=== PATIENT | male | born 1960 | race Caucasian/White ===

== ENCOUNTER 2024-09-19 14:19 | Inpatient (IN) ==
--- NOTE | 2024-09-19 14:31 | Emergency Department Note ---
Impression & Plan Encephalopathy acute, AC separation, TARA (acute kidney injury), Lung nodule, Benzodiazepine overdose, Rhabdomyolysis ED Provider Note NAME: KIMBERLY HYLTON AGE: 64 SEX: M : 1960 ARRIVES VIA: Ambulance INFORMANT: Patient, EMS, family ED PROVIDER(S): Magen Go DO CHIEF COMPLAINT: possible overdose HPI: This is a 64-year-old male with the PMHx of hypertension, lupus on hydroxychloroquine, lung nodules, tobacco use disorder, and possibly carcinoid cancer regarding this. presenting to [facility] for further evaluation of possible overdose now with AMS. Patient is accompanied by EMS who provide additional history. Patient arrives with police. The patient was unresponsive. EMS brought the patient in. Patient is supposed to return to custodial tomorrow. Made suicidal statements about a note. Patient unresponsive. Patient was given 8 mg of Narcan prior to arrival. Patient is not apneic. He is responsive. Patient does not have forthcoming statements about his history or review of systems today. He does state that he took no medications today. Medications at the bedside show Zolpidem but filled on 08/24 with 30 tablets, 1 tablet left. They deny fever or chills. No cough or congestion. Denies chest pain or palpitations. No shortness of breath. They deny abdominal pain, nausea and vomiting. No urinary complaints. No recent changes in bowel movements. Patient denies recent changes in medications or OTC supplements. Patient offers no other complaints, today. ADDITIONAL HISTORY OBTAINED: Per HPI Chronic Medical/Social Conditions Affecting Care: Per HPI PAST MEDICAL HISTORY: See Below PAST SURGICAL HISTORY: See Below FAMILY HISTORY: See Below SOCIAL HISTORY: See Below HOME MEDICATIONS: See Below ALLERGIES: See Below VITALS: See Below PHYSICAL EXAMINATION: GENERAL: Sitting up in bed, alert, well appearing, well nourished, no distress, non-toxic, diaphoretic EYE EXAM: normal conjunctiva. PERRL and EOM's grossly intact. OROPHARYNX: no exudate, no erythema, lips, buccal mucosa, and tongue normal and mucous membranes are dry NECK: supple, no nuchal rigidity, no adenopathy, midline TTP LUNGS: Clear to auscultation. Normal chest wall mechanics HEART: no murmurs, tachycardic rate, regular rhythm ABDOMEN: abdomen soft, non-tender, normo-active bowel sounds, no masses, no rebound or guarding. BACK: Back is symmetrical on inspection and there is no deformity, no midline tenderness, no CVA tenderness. SKIN: no rashes and no bruising UPPER EXTREMITIES: upper extremities are grossly normal. L AC separation LOWER EXTREMITIES: No pitting edema. NEURO EXAM: Normal sensorium, cranial nerves II-XII grossly intact, normal speech, no gross weakness of arms, no gross weakness of legs. No clonus. Normoreflexic. MEDICAL DECISION MAKING: Differential diagnoses includes but not limited to hypoglycemia, electrolyte derangements, dehydration, shock, CVA, ICH, hydrocephalus, NPH, UTI, pneumonia, viral URI, postictal period, ACS, dysrhythmia, metabolic encephalopathy, multifactorial encephalopathy, hepatic encephalopathy, hypercapnia, hypoxia, polypharmacy, substance use In summary, this is a 64 year old male who presented with AMS. Differential as above. Nursing notes and pertinent past medical records reviewed. Vital signs reviewed and the patient is tachycardic but otherwise afebrile and hemodynamically stable. History and presentation revealed potential overdose today. Did receive 8 mg of Narcan with EMS. Appears this was for altered mental status as the patient was not hypoxic or apneic. Patient may have taken Ambien or lorazepam. Also has hydroxychloroquine available to him. Patient is not reliable for history or physical examination. Unable to provide significant history or review of systems. Physical examination revealed as above. As a result of my initial evaluation, given unclear etiology of the patient's altered mental status As well as possible AC separation, will obtain whole- body CT scan for traumatic injuries. Plan for infectious and metabolic workup. Plan for tox screen. No evidence of serotonin syndrome. I do not find evidence of anticholinergic toxicity but still possible with tachycardia. Patient is diaphoretic making this unlikely. Could be Sympathomimetic. Could be infectious or traumatic. Plan for further workup. Will provide IV fluid resuscitation while obtaining labs and imaging. Diagnostics interpreted by me include EKG and cardiac monitoring as listed below: -Cardiac Monitoring: An order was placed for continuous cardiac monitoring. The monitor shows a rate of 90-130 with regular rhythm. -ECG: initial EKG shows a poor baseline but appears to be normal sinus rhythm in the [address] segment changes to suggest STEMI. Intervals are within normal limits otherwise. QTc is 420 ms. URS duration is 82 ms Patient completed laboratory studies and imaging. The patient was managed with CCRM and bladder scan on arrival. Bladder scan showed minimal urine, 160s in the bladder. Do not suspect significant urinary retention. No fever. Minimal tachycardia. No clonus, rigidity and normal reflexes. Serotonin syndrome less likely. POC labs show possible TARA but unclear baseline. Will bolus with IVFR. There is concerns for possible shoulder dislocation from nursing staff and radiology. I reviewed imaging at the bedside. He does appear to have an AC separation on the left. Shoulder appears mildly subluxed. He has no significant pain. I reviewed prior imaging including CT chest and plain films of the left shoulder dating back the last few years. Does have a chronic AC separation. This appears similar to prior. I do not believe the shoulder is dislocated. Given that the patient is a poor historian with possible trauma, we will still obtain whole-body CT scans and place c-collar. Further history obtained from family. Had a 60 tablet 1 mg lorazepam prescription filled 10 days ago. No tablets left in the bottle. They believe he likely overdosed on lorazepam. Patient is you have any recent currently awake. He is a GCS of 14. No apnea. Mild confusion. Will hold off on reversal with flumazenil at this time.CKD versus TARA noted on CMP. No significant electrolyte derangements. CK is mildly elevated at 722. Plan for continued IV fluid resuscitation. Patient's urinalysis shows some blood and ketones. There are hyaline casts. Suspect likely dehydration. IV fluid resuscitation is ongoing. No evidence of coingestions. Negative ethanol. No elevation in salicylate level or APAP. Repeat EKG shows sinus tachycardia at a rate of 111. No significant ST segment changes to suggest STEMI. There are ST segment depressions in the lateral leads. Intervals otherwise within normal limits. QRS is 92 ms. QTc is 462 ms. Chest x-ray independently interpreted by me reveals no focal consolidation to suggest pneumonia. No pneumothorax. No obvious displaced rib fracture. Patient does have a lung nodule noted. Will place in diagnoses for appropriate follow-up. Whole-body CT scans were negative for traumatic injuries. Again I do believe that the patient's AC separation is likely chronic. 1700: Still intermittently responsive. Now febrile at 38.6C. Will given further IVFR and Tylenol. Ultimately, the decision was made to admit the patient for Acute encephalopathy with concerns for possible polysubstance overdose. Does have acute rhabdomyolysis and an TARA. Did spike a fever while in the emergency department but felt more likely related to his overdose as the patient has had no other evidence of infection and extensive workup with CT scan, urinalysis and viral swab. It was recommended to admit this patient at 1708. I discussed the case with the hospitalist service via [employer] and they are agreeable to admit the patient to their services. Based on the above, including the patient's age, coexisting illnesses, labs, imaging, and exam findings the decision to treat as an inpatient. I discussed the patient with the hospitalist team who recommended admission to their services. They received the medications, treatments, interventions indicated above and their condition remained guarded. I discussed my findings with the patient and their family and they understand and agree with the treatment plan. All patient / family questions were answered to their satisfaction. Consults/Care Managements Discussions: Per [facility] ER treatment provided: See above Procedures:none Critical Care: None The chart was completed utilizing [employer] Speech voice recognition software. Grammatical errors, random word insertions, pronoun errors, and incomplete sentences are an occasional consequence of this system due to software limitations, ambient noise, and hardware issues. Any formal questions or concerns about the content, text, or information contained within the body of this dictation should be directly addressed to the physician for clarification. Past Med/Surg History Problem List Lung nodule (Acute) TARA (acute kidney injury) (Acute) AC separation (Acute) Encephalopathy acute (Acute) Other nonspecific abnormal finding of lung field Lung nodules Dyspnea on exertion Tobacco abuse counseling Abnormal CT scan, chest Headache (Acute) Nasal congestion (Acute) Sinus pain (Acute) Medical History History of hypertension History of lupus Surgical History History of total left hip replacement History of hernia repair Social History Smoking Status: Unknown if ever smoked Tobacco Type: Cigarettes Age Started Using Tobacco: 16; packs per day: 0.5; Hx Alcohol Use: No Hx Substance Use: No Feels Safe at Home: Yes Allergies Allergies Allergy/AdvReac Type Severity Reaction Status Date / Time linezolid Allergy Unknown POSSIBLE Verified 08/01/21 14:51 ALLERGY Penicillins Allergy Unknown Verified 08/01/21 14:51 vancomycin AdvReac Intermediate POSSIBLE Verified 08/01/21 14:51 [employer] Home Meds Home Medications Medication Instructions Recorded Confirmed hydroxychloroquine 200 mg tablet 300 mg PO HS 09/19/24 09/19/24 irbesartan 300 mg tablet 300 mg PO DAILY 09/19/24 09/19/24 lorazepam 1 mg tablet 1 mg PO BID PRN Anxiety 09/19/24 09/19/24 zolpidem 10 mg tablet (Ambien) 10 mg PO HS PRN Sleep 09/19/24 09/19/24 Results & Data (ED) Vital Signs Vital Signs - 24 hr 09/19/24 14:23 09/19/24 14:23 09/19/24 14:30 Temperature 37.6 C H Temperature Source Oral Pulse Rate 113 H 123 H Pulse Rate [Right Finger] Respiratory Rate 24 Respiratory Effort / Characteristics Non-Labored Spontaneous Respiratory Depth Normal Respiratory Pattern Regular Blood Pressure 127/81 Blood Pressure [Left Arm] Blood Pressure Mean 96 Blood Pressure Mean [Left Arm] Pulse Oximetry 98 98 Oxygen Delivery Method Room Air Room Air Oxygen Flow Rate Sepsis Recent Fever Within 48 Hours No Sepsis New/Unexplained Change in Mental Status Yes Sepsis Action Taken by Nursing Physician Notified Oxygen Flow Rate - Titration Pulse Oximetry Post Tiitration 09/19/24 14:31 09/19/24 14:31 09/19/24 15:12 Temperature Temperature Source Pulse Rate Pulse Rate [Right Finger] 100 H Respiratory Rate 12 Respiratory Effort / Characteristics Non-Labored Spontaneous Respiratory Depth Normal Respiratory Pattern Regular Blood Pressure Blood Pressure [Left Arm] 129/75 Blood Pressure Mean Blood Pressure Mean [Left Arm] 93 Pulse Oximetry 95 95 95 Oxygen Delivery Method Room Air Room Air Room Air Oxygen Flow Rate Sepsis Recent Fever Within 48 Hours Sepsis New/Unexplained Change in Mental Status Sepsis Action Taken by Nursing Oxygen Flow Rate - Titration Pulse Oximetry Post Tiitration 09/19/24 15:36 09/19/24 15:55 09/19/24 16:15 Temperature Temperature Source Pulse Rate Pulse Rate [Right Finger] 104 H 106 H 104 H Respiratory Rate 18 14 14 Respiratory Effort / Characteristics Non-Labored Spontaneous Non-Labored Spontaneous Non-Labored Spontaneous Respiratory Depth Normal Normal Normal Respiratory Pattern Regular Blood Pressure Blood Pressure [Left Arm] 124/71 111/68 110/67 Blood Pressure Mean Blood Pressure Mean [Left Arm] 88 82 81 Pulse Oximetry 94 96 92 Oxygen Delivery Method Room Air Room Air Room Air Oxygen Flow Rate Sepsis Recent Fever Within 48 Hours Sepsis New/Unexplained Change in Mental Status Sepsis Action Taken by Nursing Oxygen Flow Rate - Titration Pulse Oximetry Post Tiitration 09/19/24 16:30 09/19/24 16:48 09/19/24 17:05 Temperature 38.8 C H Temperature Source Oral Pulse Rate Pulse Rate [Right Finger] 102 H 107 H Respiratory Rate 14 18 Respiratory Effort / Characteristics Non-Labored Spontaneous Non-Labored Spontaneous Respiratory Depth Normal Normal Respiratory Pattern Blood Pressure Blood Pressure [Left Arm] 107/65 113/68 Blood Pressure Mean Blood Pressure Mean [Left Arm] 79 83 Pulse Oximetry 97 89 L 96 Oxygen Delivery Method Room Air Room Air Nasal Cannula Oxygen Flow Rate 2 Sepsis Recent Fever Within 48 Hours Sepsis New/Unexplained Change in Mental Status Sepsis Action Taken by Nursing Oxygen Flow Rate - Titration 2 Pulse Oximetry Post Tiitration 93 09/19/24 17:30 09/19/24 17:45 Temperature Temperature Source Pulse Rate Pulse Rate [Right Finger] 95 H 100 H Respiratory Rate 18 12 Respiratory Effort / Characteristics Non-Labored Spontaneous Respiratory Depth Normal Normal Respiratory Pattern Regular Blood Pressure Blood Pressure [Left Arm] 117/70 120/71 Blood Pressure Mean Blood Pressure Mean [Left Arm] 85 87 Pulse Oximetry 97 96 Oxygen Delivery Method Nasal Cannula Nasal Cannula Oxygen Flow Rate 2 2 Sepsis Recent Fever Within 48 Hours Sepsis New/Unexplained Change in Mental Status Sepsis Action Taken by Nursing Oxygen Flow Rate - Titration Pulse Oximetry Post Tiitration Laboratory Data 09/19/24 14:26 09/19/24 14:26 Lab Results 09/19/24 09/19/24 09/19/24 Range/Units 14:26 14:34 14:38 WBC 6.49 (4.8-10.8) K/ul RBC 4.91 (4.70-6.10) M/uL Hgb 14.8 (14.0-18.0) g/dl POC Hgb 16.0 (14.0-18.0) g/dl Hct 45.0 (42.0-52.0) % POC Hct 47 (42-52) % MCV 91.6 (80.0-100.0) fL MCH 30.1 (25.0-34.0) pg MCHC 32.9 (32.0-36.0) g/dL RDW Std Deviation 46.2 (36.4-46.3) fL RDW Coeff of Jamie 13.7 (11.5-14.5) % Plt Count 205 (130-400) K/uL MPV 10.9 (9.4-12.4) fL Immature Gran % (Auto) 0.2 % Neut % (Auto) 62.0 % Lymph % (Auto) 26.5 % [place] % (Auto) 10.5 % Eos % (Auto) 0.3 % Baso % (Auto) 0.5 % Neut # (Auto) 4.03 (1.40-6.50) K/uL Lymph # (Auto) 1.72 (1.20-3.40) K/uL [place] # (Auto) 0.68 H (0.11-0.59) K/uL Eos # (Auto) 0.02 (0.00-0.50) K/uL Baso # (Auto) 0.03 (0.00-0.20) K/uL Immature Gran # (Auto) 0.01 (0.01-0.20) K/uL PT 11.2 (9.0-12.0) Seconds INR 1.0 (0.9-1.1) APTT 26 (21-31) Seconds PTT Ratio 1.0 POC Sodium 143 (135-144) mmol/L Sodium 141 (136-145) mmol/L POC Potassium 4.7 (3.3-5.0) mmol/L Potassium 4.5 (3.5-5.1) mmol/L POC Chloride 107 (101-112) mmol/L Chloride 107 (98-107) mmol/L Carbon Dioxide 26 (21-32) mmol/L POC Total CO2 25 (24-31) mmol/L Anion Gap 8 (3-11) POC Anion Gap 16.0 (16-25) mmol/L POC BUN 31 H (7-18) mg/dl BUN 29 H (6-23) mg/dl Creatinine 2.31 H (0.6-1.4) mg/dl POC Creatinine 2.3 H (0.6-1.3) mg/dl Est Cr Clr Drug Dosing 32.7 ml/min eGFR 30.97 BUN/Creatinine Ratio 12.6 (10-20) Glucose 110 H (70-99(Fasting)) mg/dl POC Glucose (other) 108 H (70-99) mg/dl Calcium 9.5 (8.6-10.3) mg/dl POC Ioniz Calcium Hattie 1.19 (1.12-1.32) mmol/l Magnesium 2.3 (1.7-2.4) mg/dl Total Bilirubin 0.4 (0.2-1.0) mg/dl AST 20 (13-39) U/L ALT 13 (7-52) U/L Alkaline Phosphatase 88 (34-104) U/L Total Creatine Kinase 722 H (30-223) U/L Troponin I High Sens 8.0 (0-20) pg/ml C-Reactive Protein < 0.50 (0-0.5) mg/dl Total Protein 8.1 (6.0-8.3) gm/dl Albumin 4.3 (3.4-5.0) gm/dl Globulin 3.8 (2.5-4.0) gm/dl Albumin/Globulin Ratio 1.1 (0.9-2) Lipase 34 (11-82) U/L Urine Color Urine Appearance (Clear) Urine pH (4.5-7.5) Ur Specific [place] (1.000-1.030) Urine Protein (Negative) Urine Glucose (UA) (Negative) Urine Ketones (Negative) Urine Blood (Negative) Urine Nitrite (Negative) Urine Bilirubin (Negative) Urine Urobilinogen (Negative) Ur Leukocyte Esterase (Negative) Urine WBC (Auto) (0-5) /hpf Urine RBC (Auto) (0-2) /hpf U Hyaline Cast (Auto) (0-2) /lpf U Epithel Cells (Auto) (0-2) /hpf Urine Bacteria (Auto) (None Seen) Hyaline Casts (None Presnt) /lpf Urine Comment Salicylates < 3.0 L (3.0-30) mg/dl Urine Opiates Screen (Neg) Ur Methadone, Qual (Neg) Urine Fentanyl Screen (Neg) Acetaminophen < 3 L (10-30) ug/ml Urine Barbiturates (Neg) Ur Phencyclidine (PCP) (Neg) U Amphetamin/Meth Scrn (Neg) MDMA (Ecstasy) Screen (Neg) U Benzodiazepines Scrn (Neg) Ur Cocaine Metabolite (Neg) U Marijuana (THC) Screen (Neg) Ethyl Alcohol mg/dL < 10.0 (<10.0) mg/dl Adenovirus (PCR) Not Detected (NotDetected) B. pertussis DNA (PCR) Not Detected (NotDetected) B.parapertussis DNA PCR Not Detected (NotDetected) C. pneumoniae DNA (PCR) Not Detected (NotDetected) Coronavirus OC43 (PCR) Not Detected (NotDetected) Coronavirus HKU1 (PCR) Not Detected (NotDetected) Coronavirus 229E (PCR) Not Detected (NotDetected) SARS-CoV-2 (PCR) Not Detected (NotDetected) Coronavirus NL63 (PCR) Not Detected (NotDetected) Human Metapneumovir PCR Not Detected (NotDetected) Influenza Type A (PCR) Not Detected (NotDetected) Influenza Type B (PCR) Not Detected (NotDetected) M. pneumoniae (PCR) Not Detected (NotDetected) Parainfluenza 1 (PCR) Not Detected (NotDetected) Parainfluenza 2 (PCR) Not Detected (NotDetected) Parainfluenza 3 (PCR) Not Detected (NotDetected) Parainfluenza 4 (PCR) Not Detected (NotDetected) RSV (PCR) Not Detected (NotDetected) Entero/Rhino (PCR) Not Detected (NotDetected) 09/19/24 Range/Units 14:47 WBC (4.8-10.8) K/ul RBC (4.70-6.10) M/uL Hgb (14.0-18.0) g/dl POC Hgb (14.0-18.0) g/dl Hct (42.0-52.0) % POC Hct (42-52) % MCV (80.0-100.0) fL MCH (25.0-34.0) pg MCHC (32.0-36.0) g/dL RDW Std Deviation (36.4-46.3) fL RDW Coeff of Jamie (11.5-14.5) % Plt Count (130-400) K/uL MPV (9.4-12.4) fL Immature Gran % (Auto) % Neut % (Auto) % Lymph % (Auto) % [place] % (Auto) % Eos % (Auto) % Baso % (Auto) % Neut # (Auto) (1.40-6.50) K/uL Lymph # (Auto) (1.20-3.40) K/uL [place] # (Auto) (0.11-0.59) K/uL Eos # (Auto) (0.00-0.50) K/uL Baso # (Auto) (0.00-0.20) K/uL Immature Gran # (Auto) (0.01-0.20) K/uL PT (9.0-12.0) Seconds INR (0.9-1.1) APTT (21-31) Seconds PTT Ratio POC Sodium (135-144) mmol/L Sodium (136-145) mmol/L POC Potassium (3.3-5.0) mmol/L Potassium (3.5-5.1) mmol/L POC Chloride (101-112) mmol/L Chloride (98-107) mmol/L Carbon Dioxide (21-32) mmol/L POC Total CO2 (24-31) mmol/L Anion Gap (3-11) POC Anion Gap (16-25) mmol/L POC BUN (7-18) mg/dl BUN (6-23) mg/dl Creatinine (0.6-1.4) mg/dl POC Creatinine (0.6-1.3) mg/dl Est Cr Clr Drug Dosing ml/min eGFR BUN/Creatinine Ratio (10-20) Glucose (70-99(Fasting)) mg/dl POC Glucose (other) (70-99) mg/dl Calcium (8.6-10.3) mg/dl POC Ioniz Calcium Hattie (1.12-1.32) mmol/l Magnesium (1.7-2.4) mg/dl Total Bilirubin (0.2-1.0) mg/dl AST (13-39) U/L ALT (7-52) U/L Alkaline Phosphatase (34-104) U/L Total Creatine Kinase (30-223) U/L Troponin I High Sens (0-20) pg/ml C-Reactive Protein (0-0.5) mg/dl Total Protein (6.0-8.3) gm/dl Albumin (3.4-5.0) gm/dl Globulin (2.5-4.0) gm/dl Albumin/Globulin Ratio (0.9-2) Lipase (11-82) U/L Urine Color Dark Yellow Urine Appearance Clear (Clear) Urine pH 5.5 (4.5-7.5) Ur Specific [place] 1.025 (1.000-1.030) Urine Protein 2+ H (Negative) Urine Glucose (UA) Negative (Negative) Urine Ketones Trace H (Negative) Urine Blood 2+ H (Negative) Urine Nitrite Negative (Negative) Urine Bilirubin Negative (Negative) Urine Urobilinogen Negative (Negative) Ur Leukocyte Esterase Negative (Negative) Urine WBC (Auto) 0-5 (0-5) /hpf Urine RBC (Auto) >20 H (0-2) /hpf U Hyaline Cast (Auto) 11-20 H (0-2) /lpf U Epithel Cells (Auto) 0-2 (0-2) /hpf Urine Bacteria (Auto) None Seen (None Seen) Hyaline Casts Present A (None Presnt) /lpf Urine Comment Salicylates (3.0-30) mg/dl Urine Opiates Screen Pos H (Neg) Ur Methadone, Qual Neg (Neg) Urine Fentanyl Screen Neg (Neg) Acetaminophen (10-30) ug/ml Urine Barbiturates Neg (Neg) Ur Phencyclidine (PCP) Neg (Neg) U Amphetamin/Meth Scrn Neg (Neg) MDMA (Ecstasy) Screen Neg (Neg) U Benzodiazepines Scrn Neg (Neg) Ur Cocaine Metabolite Neg (Neg) U Marijuana (THC) Screen Neg (Neg) Ethyl Alcohol mg/dL (<10.0) mg/dl Adenovirus (PCR) (NotDetected) B. pertussis DNA (PCR) (NotDetected) B.parapertussis DNA PCR (NotDetected) C. pneumoniae DNA (PCR) (NotDetected) Coronavirus OC43 (PCR) (NotDetected) Coronavirus HKU1 (PCR) (NotDetected) Coronavirus 229E (PCR) (NotDetected) SARS-CoV-2 (PCR) (NotDetected) Coronavirus NL63 (PCR) (NotDetected) Human Metapneumovir PCR (NotDetected) Influenza Type A (PCR) (NotDetected) Influenza Type B (PCR) (NotDetected) M. pneumoniae (PCR) (NotDetected) Parainfluenza 1 (PCR) (NotDetected) Parainfluenza 2 (PCR) (NotDetected) Parainfluenza 3 (PCR) (NotDetected) Parainfluenza 4 (PCR) (NotDetected) RSV (PCR) (NotDetected) Entero/Rhino (PCR) (NotDetected) Administered Medications Parenteral Electrolytes (Plasma-Lyte A Ph 7.4) 1,000 mls @ 999 mls/hr IV .Q1H1M ONE Stop: 09/19/24 18:06 Last Admin: 09/19/24 17:13 Dose: 999 mls/hr Documented By: JAMA Discontinued Medications Fentanyl Citrate (Fentanyl Citrate Pf 100 Mcg/2 Ml Vial) 50 mcg IV NOW ONE Stop: 09/19/24 14:59 Last Admin: 09/19/24 16:40 Dose: Not Given Documented By: NRDarren Parenteral Electrolytes (Plasma-Lyte A Ph 7.4) 1,000 mls @ 999 mls/hr IV .Q1H1M ONE Stop: 09/19/24 15:30 Last Infusion: 09/19/24 15:45 Dose: Infused Documented By: Admin: 09/19/24 14:50 Dose: 999 mls/hr Documented By: WILFREDO Acetaminophen (Ofirmev) 1,000 mg in 100 mls @ 400 mls/hr IV NOW STA Stop: 09/19/24 17:21 Last Admin: 09/19/24 17:15 Dose: 400 mls/hr Documented By: JAMA Imaging Data Radiologist's Impression: Chest X-Ray 09/19/24 14:31 Chest radiograph, one view History: AMS Comparison: None Findings: Single AP view of the chest performed. No focal consolidation or pleural effusion. A focal nodule at the medial right lower lung is seen. No pneumothorax. The cardiomediastinal silhouette is within normal limits. Normal pulmonary vascularity. No evidence for lymphadenopathy. No visualized bony or soft tissue abnormality. Impression: Focal nodule at the medial right lower lung. No other acute findings. Electronically signed by Kai Cosme 09-19-2024 3:[address] 09/19/24 14:31 CT head without contrast History: AMS Comparison: None Technique: Using multidetector thin collimation helical acquisition technique, axial, coronal and sagittal CT images from the skull base to the vertex were obtained without intravenous contrast. Dose reduction techniques were achieved by using automatic exposure control and/or adjustment of mA and/or kV according to patient size and/or use of iterative reconstruction technique. Findings: No intracranial hemorrhage, mass-effect, or midline shift. The ventricles are proportionate to the cerebral sulci. The bloom to white matter differentiation of the cerebral hemispheres is preserved. The basal cisterns are patent. The visualized paranasal sinuses are clear. Mastoid air cells are clear. Impression: No acute intracranial pathology. Electronically signed by Kai Cosme 09-19-2024 4:52 PM Humerus X-Ray 09/19/24 14:57 Study: Left humerus 2 views, left shoulder 3 views History: Pain Comparison: None Findings: There is no acute fracture or dislocation. There is superior elevation of the distal clavicle relative to the acromion, however which is chronic, with bony remodeling and bony exostoses noted, possibly from old trauma. The glenohumeral joint is congruent. Joint spaces are well maintained. There is no joint effusion or significant soft tissue swelling. Bone mineralization is normal. Impression: No acute bony abnormality. Chronic changes to the acromioclavicular joint, as above. Electronically signed by Kai Cosme 09-19-2024 4:20 PM Shoulder X-Ray 09/19/24 14:57 Study: Left humerus 2 views, left shoulder 3 views History: Pain Comparison: None Findings: There is no acute fracture or dislocation. There is superior elevation of the distal clavicle relative to the acromion, however which is chronic, with bony remodeling and bony exostoses noted, possibly from old trauma. The glenohumeral joint is congruent. Joint spaces are well maintained. There is no joint effusion or significant soft tissue swelling. Bone mineralization is normal. Impression: No acute bony abnormality. Chronic changes to the acromioclavicular joint, as above. Electronically signed by Kai Cosme 09-19-2024 4:20 PM Abdomen/Pelvis CT 09/19/24 14:58 EXAMINATION: CT of the chest, abdomen and pelvis performed without the administration of IV contrast TECHNIQUE: Helical CT images from the lung apices through the symphysis pubis were obtained without contrast. Coronal and sagittal reformatted images were generated at a workstation for further assessment. Dose reduction techniques were achieved by using automatic exposure control and/or adjustment of mA and/or kV according to patient size and/or use of iterative reconstruction technique. COMPARISON: None HISTORY: AMS FINDINGS: Lines and tubes: None Mediastinum/Neck Base: No thyroid nodules. Central tracheobronchial tree is patent. Heart size is normal. No pericardial effusion. Normal thoracic vasculature. No thoracic lymphadenopathy. Lungs: Solid 15 x 14 mm pulmonary nodule in the medial right lower lobe of the lung. 12 mm solid nodule in the right upper lobe on image 17. No consolidation. No pleural effusion or pneumothorax. Liver: No suspicious liver lesions. Gallbladder: No gallstones. No evidence of acute cholecystitis. Spleen: Normal size. Pancreas: No suspicious pancreatic lesions. The pancreatic duct is not dilated. Adrenal glands: No adrenal nodules. Kidneys: No hydronephrosis or obstructing renal stones. Punctate nonobstructing stone in the left kidney. Small hemorrhagic/proteinaceous cyst in the left kidney measuring 8 mm. Bladder / Pelvic organs: Unremarkable. Bowel: No bowel obstruction. No abnormal bowel wall thickening. The appendix is unremarkable. Left colonic diverticulosis without diverticulitis. Lymph nodes: No retroperitoneal, mesenteric, or pelvic lymphadenopathy. Peritoneum / Retroperitoneum: No free fluid or air within the abdomen. Vessels: No infrarenal aortic aneurysm. Bones and soft tissues: Degenerative changes of the spine. No acute osseous normality. Left hip arthroplasty. IMPRESSION: 1. No acute finding in the chest, abdomen or pelvis. 2. Solid right lung pulmonary nodules, similar or possibly slightly increased from May 2021, and were also assessed on an interval PET/CT. Electronically signed by Kai Cosme 09-19-2024 4:[address] 09/19/24 14:58 CT cervical spine without IV contrast History: AMS Comparison: None Technique: Using multidetector thin collimation helical acquisition technique, axial, coronal and sagittal CT images through the cervical spine were obtained without intravenous contrast. Dose reduction techniques were achieved by using automatic exposure control and/or adjustment of mA and/or kV according to patient size and/or use of iterative reconstruction technique. Findings: The cervical vertebrae are normally aligned. Normal cervical lordosis. No acute fracture or subluxation. No prevertebral edema. Moderate discogenic degenerative change at C5-6 and C6-7, and mild at C7-T1. No abnormality of the paraspinous soft tissues.Right upper lobe pulmonary nodule. Impression: No acute fracture or traumatic subluxation. Electronically signed by Kai Cosme 09-19-2024 4:[address] 09/19/24 14:58 EXAMINATION: CT of the chest, abdomen and pelvis performed without the administration of IV contrast TECHNIQUE: Helical CT images from the lung apices through the symphysis pubis were obtained without contrast. Coronal and sagittal reformatted images were generated at a workstation for further assessment. Dose reduction techniques were achieved by using automatic exposure control and/or adjustment of mA and/or kV according to patient size and/or use of iterative reconstruction technique. COMPARISON: None HISTORY: AMS FINDINGS: Lines and tubes: None Mediastinum/Neck Base: No thyroid nodules. Central tracheobronchial tree is patent. Heart size is normal. No pericardial effusion. Normal thoracic vasculature. No thoracic lymphadenopathy. Lungs: Solid 15 x 14 mm pulmonary nodule in the medial right lower lobe of the lung. 12 mm solid nodule in the right upper lobe on image 17. No consolidation. No pleural effusion or pneumothorax. Liver: No suspicious liver lesions. Gallbladder: No gallstones. No evidence of acute cholecystitis. Spleen: Normal size. Pancreas: No suspicious pancreatic lesions. The pancreatic duct is not dilated. Adrenal glands: No adrenal nodules. Kidneys: No hydronephrosis or obstructing renal stones. Punctate nonobstructing stone in the left kidney. Small hemorrhagic/proteinaceous cyst in the left kidney measuring 8 mm. Bladder / Pelvic organs: Unremarkable. Bowel: No bowel obstruction. No abnormal bowel wall thickening. The appendix is unremarkable. Left colonic diverticulosis without diverticulitis. Lymph nodes: No retroperitoneal, mesenteric, or pelvic lymphadenopathy. Peritoneum / Retroperitoneum: No free fluid or air within the abdomen. Vessels: No infrarenal aortic aneurysm. Bones and soft tissues: Degenerative changes of the spine. No acute osseous normality. Left hip arthroplasty. IMPRESSION: 1. No acute finding in the chest, abdomen or pelvis. 2. Solid right lung pulmonary nodules, similar or possibly slightly increased from May 2021, and were also assessed on an interval PET/CT. Electronically signed by Kai Cosme 09-19-2024 4:58 PM Discharge Plan Visit Data Chief Complaint: Unresponsive ED Provider: Magen Go Discharge Problem: Encephalopathy acute, AC separation, TARA (acute kidney injury), Lung nodule, Benzodiazepine overdose, Rhabdomyolysis Patient Disposition: Admitted As Inpatient Condition: Serious Forms Stand Alone Forms: [facility] Prescriptions Prescriptions: No Action lorazepam 1 mg Tablet 1 mg PO BID PRN (Reason: Anxiety) hydroxychloroquine 200 mg Tablet 300 mg PO HS zolpidem [Ambien] 10 mg Tablet 10 mg PO HS PRN (Reason: Sleep) irbesartan 300 mg Tablet 300 mg PO DAILY Referrals Referrals: Michael Berg [Primary Care Provider] -
[2024-09-19] MEDS: PLASMA-LYTE A 1,000 ML IV ONE ×2 (14:50→17:13)
[2024-09-19 15:28] LABS: Hematocrit (blood only) 45.0 % (42.0-52.0); Hemoglobin 14.8 g/dl (14.0-18.0); Immature Granulocytes # (auto) 0.01 K/uL (0.01-0.20); Immature Granulocytes % (auto) 0.2 %; Mean Corpuscular Hemoglobin 30.1 pg (25.0-34.0); Mean Corpuscular Volume 91.6 fL (80.0-100.0); Platelet Count 205 K/uL (130-400); RDW Standard Deviation 46.2 fL (36.4-46.3); Red Blood Count 4.91 M/uL (4.70-6.10); White Blood Count 6.49 K/ul (4.8-10.8)
[2024-09-19 15:29] LABS: Appearance Urine Clear (Clear); Bacteria Urine Automated None Seen (None Seen); Epithelial Cell Urine Auto 0-2 /hpf (0-2); Glucose Urine UA Negative (Negative); RBC Urine Automated >20 /hpf (0-2); WBC Urine Automated 0-5 /hpf (0-5)
[2024-09-19 15:36] LABS: Anion Gap 8 (3-11); Bilirubin,Total 0.4 mg/dl (0.2-1.0); Calcium 9.5 mg/dl (8.6-10.3); Carbon Dioxide 26 mmol/L (21-32); Chloride 107 mmol/L (98-107); Magnesium 2.3 mg/dl (1.7-2.4); Potassium 4.5 mmol/L (3.5-5.1); Sodium 141 mmol/L (136-145)
[2024-09-19 15:43] LABS: Alanine Aminotransferase 13 U/L (7-52); Albumin Globulin Ratio 1.1 (0.9-2); Alkaline Phosphatase 88 U/L (34-104); Blood Urea Nitrogen 29 mg/dl (6-23); Creatine Kinase 722 U/L (30-223); Creatinine Clr Calc Pharmacy 32.7 ml/min; Globulin 3.8 gm/dl (2.5-4.0); Glucose 110 mg/dl (70-99(Fasting)); Lipase 34 U/L (11-82); Total Protein 8.1 gm/dl (6.0-8.3)
[2024-09-19 15:53] LABS: Acetaminophen < 3 ug/ml (10-30); Salicylate < 3.0 mg/dl (3.0-30)
--- NOTE | 2024-09-19 15:53 | XRay Report ---
Chest radiograph, one view History: AMS Comparison: None Findings: Single AP view of the chest performed. No focal consolidation or pleural effusion. A focal nodule at the medial right lower lung is seen. No pneumothorax. The cardiomediastinal silhouette is within normal limits. Normal pulmonary vascularity. No evidence for lymphadenopathy. No visualized bony or soft tissue abnormality. Impression: Focal nodule at the medial right lower lung. No other acute findings. Electronically signed by Kai Cosme 09-19-2024 3:53 PM
[2024-09-19 15:56] LABS: INR 1.0 (0.9-1.1); Partial Thromboplastin Time 26 Seconds (21-31); Prothrombin Time 11.2 Seconds (9.0-12.0)
[2024-09-19 16:06] LABS: Amphetamines+Metham, Urine Neg (Neg); MDMA (Ecstacy), Urine Neg (Neg); Marijuana, Urine Neg (Neg)
--- NOTE | 2024-09-19 16:20 | XRay Report ---
Study: Left humerus 2 views, left shoulder 3 views History: Pain Comparison: None Findings: There is no acute fracture or dislocation. There is superior elevation of the distal clavicle relative to the acromion, however which is chronic, with bony remodeling and bony exostoses noted, possibly from old trauma. The glenohumeral joint is congruent. Joint spaces are well maintained. There is no joint effusion or significant soft tissue swelling. Bone mineralization is normal. Impression: No acute bony abnormality. Chronic changes to the acromioclavicular joint, as above. Electronically signed by Kai Cosme 09-19-2024 4:20 PM
[2024-09-19 16:23] LABS: Chlamydia pneumoniae PCR Not Detected (NotDetected); Coronavirus 229E PCR Not Detected (NotDetected); Coronavirus CoV-2 (COVID19)PCR Not Detected (NotDetected); Coronavirus HKU1 PCR Not Detected (NotDetected); Coronavirus NL63 PCR Not Detected (NotDetected); Coronavirus OC43PCR Not Detected (NotDetected); Human Metapneumovirus PCR Not Detected (NotDetected); Parainfluenza Virus 1 PCR Not Detected (NotDetected); Parainfluenza Virus 2 PCR Not Detected (NotDetected); Parainfluenza Virus 3 PCR Not Detected (NotDetected); Parainfluenza Virus 4 PCR Not Detected (NotDetected); Respiratory Syncytial VirusPCR Not Detected (NotDetected); Rhinovirus/Enterovirus PCR Not Detected (NotDetected)
--- NOTE | 2024-09-19 16:52 | CT Scan Report ---
CT head without contrast History: AMS Comparison: None Technique: Using multidetector thin collimation helical acquisition technique, axial, coronal and sagittal CT images from the skull base to the vertex were obtained without intravenous contrast. Dose reduction techniques were achieved by using automatic exposure control and/or adjustment of mA and/or kV according to patient size and/or use of iterative reconstruction technique. Findings: No intracranial hemorrhage, mass-effect, or midline shift. The ventricles are proportionate to the cerebral sulci. The bloom to white matter differentiation of the cerebral hemispheres is preserved. The basal cisterns are patent. The visualized paranasal sinuses are clear. Mastoid air cells are clear. Impression: No acute intracranial pathology. Electronically signed by Kai Cosme 09-19-2024 4:52 PM
--- NOTE | 2024-09-19 16:54 | CT Scan Report ---
CT cervical spine without IV contrast History: AMS Comparison: None Technique: Using multidetector thin collimation helical acquisition technique, axial, coronal and sagittal CT images through the cervical spine were obtained without intravenous contrast. Dose reduction techniques were achieved by using automatic exposure control and/or adjustment of mA and/or kV according to patient size and/or use of iterative reconstruction technique. Findings: The cervical vertebrae are normally aligned. Normal cervical lordosis. No acute fracture or subluxation. No prevertebral edema. Moderate discogenic degenerative change at C5-6 and C6-7, and mild at C7-T1. No abnormality of the paraspinous soft tissues.Right upper lobe pulmonary nodule. Impression: No acute fracture or traumatic subluxation. Electronically signed by Kai Cosme 09-19-2024 4:52 PM
--- NOTE | 2024-09-19 16:59 | CT Scan Report ---
EXAMINATION: CT of the chest, abdomen and pelvis performed without the administration of IV contrast TECHNIQUE: Helical CT images from the lung apices through the symphysis pubis were obtained without contrast. Coronal and sagittal reformatted images were generated at a workstation for further assessment. Dose reduction techniques were achieved by using automatic exposure control and/or adjustment of mA and/or kV according to patient size and/or use of iterative reconstruction technique. COMPARISON: None HISTORY: AMS FINDINGS: Lines and tubes: None Mediastinum/Neck Base: No thyroid nodules. Central tracheobronchial tree is patent. Heart size is normal. No pericardial effusion. Normal thoracic vasculature. No thoracic lymphadenopathy. Lungs: Solid 15 x 14 mm pulmonary nodule in the medial right lower lobe of the lung. 12 mm solid nodule in the right upper lobe on image 17. No consolidation. No pleural effusion or pneumothorax. Liver: No suspicious liver lesions. Gallbladder: No gallstones. No evidence of acute cholecystitis. Spleen: Normal size. Pancreas: No suspicious pancreatic lesions. The pancreatic duct is not dilated. Adrenal glands: No adrenal nodules. Kidneys: No hydronephrosis or obstructing renal stones. Punctate nonobstructing stone in the left kidney. Small hemorrhagic/proteinaceous cyst in the left kidney measuring 8 mm. Bladder / Pelvic organs: Unremarkable. Bowel: No bowel obstruction. No abnormal bowel wall thickening. The appendix is unremarkable. Left colonic diverticulosis without diverticulitis. Lymph nodes: No retroperitoneal, mesenteric, or pelvic lymphadenopathy. Peritoneum / Retroperitoneum: No free fluid or air within the abdomen. Vessels: No infrarenal aortic aneurysm. Bones and soft tissues: Degenerative changes of the spine. No acute osseous normality. Left hip arthroplasty. IMPRESSION: 1. No acute finding in the chest, abdomen or pelvis. 2. Solid right lung pulmonary nodules, similar or possibly slightly increased from May 2021, and were also assessed on an interval PET/CT. Electronically signed by Kai Cosme 09-19-2024 4:58 PM
[2024-09-19] MEDS: ACETAMINOPHEN 1,000 MG/100 ML VIAL IV STA (17:15)
--- NOTE | 2024-09-19 18:01 | History & Physical Report ---
Date of Service September 19, 2024 Assessment & Plan (1) TARA (acute kidney injury): (2) Encephalopathy acute: (3) AC separation: (4) Toxic metabolic encephalopathy: (5) Suicide attempt: (6) Intentional drug overdose: Plan This is a 64-year-old male with a history of Sjogren syndrome, hypertension who presented with unresponsiveness. This is most likely a suicide attempt and intentional drug overdose of benzodiazepine and zolpidem. #Acute toxic metabolic encephalopathy/suicide attempt/intentional drug overdose Most likely secondary to overdose of benzodiazepine and zolpidem Contacted poison control who recommended IV fluids and observation He is breathing on his own but is very drowsy. These medications can cause BALL ENDER and respiratory depression. If he continues to get worse and is unable to protect his airway, he will need to be intubated. However he is able to protect his airway at this time. One-to-one sitter in his room He is supposed to go to shelter tomorrow. #Acute kidney injury Unknown baseline creatinine Will assume that this is acute Hydrate with IV fluids Monitor BMP #Fever He had 1 episode of fever spike of 38.8 No leukocytosis No source found Unlikely to be infection related Will continue to monitor If continues to spike fevers, will get blood cultures and may initiate broad- spectrum antibiotics #Hypertension Will hold antihypertensives and all p.o. medications #Sjogren syndrome Hold Plaquenil as he will not be able to take p.o. due to altered mental status Assumed to be a full code VTE prophylaxis: Lovenox History of Present Illness Chief Complaint: Unresponsiveness Primary Care Provider: Michael Berg This is a 64-year-old patient with a history of Sjogren syndrome on Plaquenil, hypertension who presents to the hospital with unresponsiveness. The patient is not able to give me any history. There was no family member around. History was obtained from ER documentation and ER report. From what I could gather, the patient was found unresponsive by his family but was brought in by the police. He was supposed to go to shelter tomorrow and he had written a suicide note. He did not report taking any medications to ED staff but there were reasons to believe that he had overdosed on lorazepam, Plaquenil and zolpidem. He failed 60 tablets on 09/09 of lorazepam with nothing remaining in the pill bottle. Zolpidem was filled 08/24 with 30 tablets, 1 tablet left. He must of overdosed on these medications. He had screening tests done in the emergency room. His creatinine was 2.3. His CPK was 05/31/2021. His urine tested positive for opiate. Respiratory viral panel was negative. He had webb body imaging done that showed no acute fractures or dislocations. He was found to have a fever of 38.8 for which he got Tylenol. EKG was negative. I personally contacted poison control who recommended monitoring the patient on a telemetry unit. Allergies Allergy/AdvReac Type Severity Reaction Status Date / Time linezolid Allergy Unknown POSSIBLE Verified 08/01/21 14:51 ALLERGY Penicillins Allergy Unknown Verified 08/01/21 14:51 vancomycin AdvReac Intermediate POSSIBLE Verified 08/01/21 14:51 RED MAN SYNDROME Home Medications Medication Instructions Recorded Confirmed Type hydroxychloroquine 200 mg tablet 300 mg PO HS 09/19/24 09/19/24 History irbesartan 300 mg tablet 300 mg PO DAILY 09/19/24 09/19/24 History lorazepam 1 mg tablet 1 mg PO BID PRN Anxiety 09/19/24 09/19/24 History zolpidem 10 mg tablet (Ambien) 10 mg PO HS PRN Sleep 09/19/24 09/19/24 History Past Med/Surg History Problem List (Updated 09/19/24 @ 17:55 by Esequiel Cardozo MD) Intentional drug overdose Suicide attempt Toxic metabolic encephalopathy Lung nodule (Acute) TARA (acute kidney injury) (Acute) AC separation (Acute) Encephalopathy acute (Acute) Other nonspecific abnormal finding of lung field Lung nodules Dyspnea on exertion Tobacco abuse counseling Abnormal CT scan, chest Headache (Acute) Nasal congestion (Acute) Sinus pain (Acute) Medical History History of hypertension History of lupus Surgical History History of total left hip replacement History of hernia repair Social History Smoking Status: Unknown if ever smoked Tobacco Type: Cigarettes Age Started Using Tobacco: 16; packs per day: 0.5; Hx Alcohol Use: No Hx Substance Use: No Feels Safe at Home: Yes Review of Systems Review of Systems: Unobtainable due to reduced consciousness Physical Exam Physical Exam: General: Patient is sleeping. He is arousable with loud vocal stimulus. He has tried to answer questions but has drifted back to sleep. Heart: S1, S2/regular rate and rhythm, no murmur rubs or gallops Lungs: Clear to auscultation bilaterally. Normal effort Abdomen: Soft/nontender/nondistended. No hepatosplenomegaly Extremities: No clubbing/cyanosis. No edema Behavior: Unable to assess Results & Data Results & Data Vital Signs (Past 12 Hours) Vital Signs Temp Pulse Pulse Resp BP BP Pulse Ox 09/19/24 17:30 95 H 18 117/70 97 09/19/24 17:05 38.8 C H 107 H 18 113/68 96 09/19/24 16:48 89 L 09/19/24 16:30 102 H 14 107/65 97 09/19/24 16:15 104 H 14 110/67 92 09/19/24 15:55 106 H 14 111/68 96 09/19/24 15:36 104 H 18 124/71 94 09/19/24 15:12 100 H 12 129/75 95 09/19/24 14:31 95 09/19/24 14:31 95 09/19/24 14:30 123 H 09/19/24 14:23 98 09/19/24 14:23 37.6 C H 113 H 24 127/81 98 O2 Del Method O2 Flow Rate 09/19/24 17:30 Nasal Cannula 2 09/19/24 17:05 Nasal Cannula 2 09/19/24 16:48 Room Air 09/19/24 16:30 Room Air 09/19/24 16:15 Room Air 09/19/24 15:55 Room Air 09/19/24 15:36 Room Air 09/19/24 15:12 Room Air 09/19/24 14:31 Room Air 09/19/24 14:31 Room Air 09/19/24 14:30 09/19/24 14:23 Room Air 09/19/24 14:23 Room Air Laboratory Results Abnormal lab results 09/19/24 09/19/24 09/19/24 Range/Units 14:26 14:34 14:47 [place] # (Auto) 0.68 H (0.11-0.59) K/uL POC BUN 31 H (7-18) mg/dl BUN 29 H (6-23) mg/dl Creatinine 2.31 H (0.6-1.4) mg/dl POC Creatinine 2.3 H (0.6-1.3) mg/dl Glucose 110 H (70-99(Fasting)) mg/dl POC Glucose (other) 108 H (70-99) mg/dl Total Creatine Kinase 722 H (30-223) U/L Urine Protein 2+ H (Negative) Urine Ketones Trace H (Negative) Urine Blood 2+ H (Negative) Urine RBC (Auto) >20 H (0-2) /hpf U Hyaline Cast (Auto) 11-20 H (0-2) /lpf Hyaline Casts Present A (None Presnt) /lpf Salicylates < 3.0 L (3.0-30) mg/dl Urine Opiates Screen Pos H (Neg) Acetaminophen < 3 L (10-30) ug/ml Diagnostic Findings Chest X-Ray 09/19/24 14:31 Chest radiograph, one view History: AMS Comparison: None Findings: Single AP view of the chest performed. No focal consolidation or pleural effusion. A focal nodule at the medial right lower lung is seen. No pneumothorax. The cardiomediastinal silhouette is within normal limits. Normal pulmonary vascularity. No evidence for lymphadenopathy. No visualized bony or soft tissue abnormality. Impression: Focal nodule at the medial right lower lung. No other acute findings. Electronically signed by Kai Cosme 09-19-2024 3:[address] 09/19/24 14:31 CT head without contrast History: AMS Comparison: None Technique: Using multidetector thin collimation helical acquisition technique, axial, coronal and sagittal CT images from the skull base to the vertex were obtained without intravenous contrast. Dose reduction techniques were achieved by using automatic exposure control and/or adjustment of mA and/or kV according to patient size and/or use of iterative reconstruction technique. Findings: No intracranial hemorrhage, mass-effect, or midline shift. The ventricles are proportionate to the cerebral sulci. The bloom to white matter differentiation of the cerebral hemispheres is preserved. The basal cisterns are patent. The visualized paranasal sinuses are clear. Mastoid air cells are clear. Impression: No acute intracranial pathology. Electronically signed by Kai Cosme 09-19-2024 4:52 PM Humerus X-Ray 09/19/24 14:57 Study: Left humerus 2 views, left shoulder 3 views History: Pain Comparison: None Findings: There is no acute fracture or dislocation. There is superior elevation of the distal clavicle relative to the acromion, however which is chronic, with bony remodeling and bony exostoses noted, possibly from old trauma. The glenohumeral joint is congruent. Joint spaces are well maintained. There is no joint effusion or significant soft tissue swelling. Bone mineralization is normal. Impression: No acute bony abnormality. Chronic changes to the acromioclavicular joint, as above. Electronically signed by Kai Cosme 09-19-2024 4:20 PM Shoulder X-Ray 09/19/24 14:57 Study: Left humerus 2 views, left shoulder 3 views History: Pain Comparison: None Findings: There is no acute fracture or dislocation. There is superior elevation of the distal clavicle relative to the acromion, however which is chronic, with bony remodeling and bony exostoses noted, possibly from old trauma. The glenohumeral joint is congruent. Joint spaces are well maintained. There is no joint effusion or significant soft tissue swelling. Bone mineralization is normal. Impression: No acute bony abnormality. Chronic changes to the acromioclavicular joint, as above. Electronically signed by Kai Cosme 09-19-2024 4:20 PM Abdomen/Pelvis CT 09/19/24 14:58 EXAMINATION: CT of the chest, abdomen and pelvis performed without the administration of IV contrast TECHNIQUE: Helical CT images from the lung apices through the symphysis pubis were obtained without contrast. Coronal and sagittal reformatted images were generated at a workstation for further assessment. Dose reduction techniques were achieved by using automatic exposure control and/or adjustment of mA and/or kV according to patient size and/or use of iterative reconstruction technique. COMPARISON: None HISTORY: AMS FINDINGS: Lines and tubes: None Mediastinum/Neck Base: No thyroid nodules. Central tracheobronchial tree is patent. Heart size is normal. No pericardial effusion. Normal thoracic vasculature. No thoracic lymphadenopathy. Lungs: Solid 15 x 14 mm pulmonary nodule in the medial right lower lobe of the lung. 12 mm solid nodule in the right upper lobe on image 17. No consolidation. No pleural effusion or pneumothorax. Liver: No suspicious liver lesions. Gallbladder: No gallstones. No evidence of acute cholecystitis. Spleen: Normal size. Pancreas: No suspicious pancreatic lesions. The pancreatic duct is not dilated. Adrenal glands: No adrenal nodules. Kidneys: No hydronephrosis or obstructing renal stones. Punctate nonobstructing stone in the left kidney. Small hemorrhagic/proteinaceous cyst in the left kidney measuring 8 mm. Bladder / Pelvic organs: Unremarkable. Bowel: No bowel obstruction. No abnormal bowel wall thickening. The appendix is unremarkable. Left colonic diverticulosis without diverticulitis. Lymph nodes: No retroperitoneal, mesenteric, or pelvic lymphadenopathy. Peritoneum / Retroperitoneum: No free fluid or air within the abdomen. Vessels: No infrarenal aortic aneurysm. Bones and soft tissues: Degenerative changes of the spine. No acute osseous normality. Left hip arthroplasty. IMPRESSION: 1. No acute finding in the chest, abdomen or pelvis. 2. Solid right lung pulmonary nodules, similar or possibly slightly increased from May 2021, and were also assessed on an interval PET/CT. Electronically signed by Kai Cosme 09-19-2024 4:[address] 09/19/24 14:58 CT cervical spine without IV contrast History: AMS Comparison: None Technique: Using multidetector thin collimation helical acquisition technique, axial, coronal and sagittal CT images through the cervical spine were obtained without intravenous contrast. Dose reduction techniques were achieved by using automatic exposure control and/or adjustment of mA and/or kV according to patient size and/or use of iterative reconstruction technique. Findings: The cervical vertebrae are normally aligned. Normal cervical lordosis. No acute fracture or subluxation. No prevertebral edema. Moderate discogenic degenerative change at C5-6 and C6-7, and mild at C7-T1. No abnormality of the paraspinous soft tissues.Right upper lobe pulmonary nodule. Impression: No acute fracture or traumatic subluxation. Electronically signed by Kai Cosme 09-19-2024 4:[address] 09/19/24 14:58 EXAMINATION: CT of the chest, abdomen and pelvis performed without the administration of IV contrast TECHNIQUE: Helical CT images from the lung apices through the symphysis pubis were obtained without contrast. Coronal and sagittal reformatted images were generated at a workstation for further assessment. Dose reduction techniques were achieved by using automatic exposure control and/or adjustment of mA and/or kV according to patient size and/or use of iterative reconstruction technique. COMPARISON: None HISTORY: AMS FINDINGS: Lines and tubes: None Mediastinum/Neck Base: No thyroid nodules. Central tracheobronchial tree is patent. Heart size is normal. No pericardial effusion. Normal thoracic vasculature. No thoracic lymphadenopathy. Lungs: Solid 15 x 14 mm pulmonary nodule in the medial right lower lobe of the lung. 12 mm solid nodule in the right upper lobe on image 17. No consolidation. No pleural effusion or pneumothorax. Liver: No suspicious liver lesions. Gallbladder: No gallstones. No evidence of acute cholecystitis. Spleen: Normal size. Pancreas: No suspicious pancreatic lesions. The pancreatic duct is not dilated. Adrenal glands: No adrenal nodules. Kidneys: No hydronephrosis or obstructing renal stones. Punctate nonobstructing stone in the left kidney. Small hemorrhagic/proteinaceous cyst in the left kidney measuring 8 mm. Bladder / Pelvic organs: Unremarkable. Bowel: No bowel obstruction. No abnormal bowel wall thickening. The appendix is unremarkable. Left colonic diverticulosis without diverticulitis. Lymph nodes: No retroperitoneal, mesenteric, or pelvic lymphadenopathy. Peritoneum / Retroperitoneum: No free fluid or air within the abdomen. Vessels: No infrarenal aortic aneurysm. Bones and soft tissues: Degenerative changes of the spine. No acute osseous normality. Left hip arthroplasty. IMPRESSION: 1. No acute finding in the chest, abdomen or pelvis. 2. Solid right lung pulmonary nodules, similar or possibly slightly increased from May 2021, and were also assessed on an interval PET/CT. Electronically signed by Kai Cosme 09-19-2024 4:58 PM Code Status & VTE Plan VTE Prophylaxis Plan VTE Prophylaxis will be ordered: Yes PG Care Time/CCT Total # of Minutes Spent Total Time Spent with Patient: Total time spent is greater than 50% in coordination of care (as documented) at patient's floor/unit and/or counseling patient: Coding Level of Care Code 95929 INT INP/OBS CARE 2/55MIN Diagnoses TARA (acute kidney injury) N17.9 Encephalopathy acute G93.40 AC separation S43.109A Toxic metabolic encephalopathy G92.8 Suicide attempt T14.91XA Intentional drug overdose T50.902A
[2024-09-19] MEDS ORDERED: ONDANSETRON INJ 2 MG/ML 2 ML VIAL IV PRN (21:42)
[2024-09-19] MEDS: HEPARIN SOD 5,000 UNIT/0.5 ML VIAL SQ SCH (21:49)
[2024-09-19] MEDS: SODIUM CHLORIDE 0.9% 1,000 ML IV SCH (21:49)
--- NOTE | 2024-09-19 23:12 | Communication Note ---
Date of Service: September 19, 2024 Patient was to present himself to [facility] in [place]. Note provided to daughter stating that patient is currently hospit alized at [facility]. Please loop in CM in AM, senior care phone number provided by daughter: [phone]
[2024-09-20] MEDS: FLUMAZENIL 0.1 MG/1 ML 10 ML VIAL IV STA (00:01)
[2024-09-20] MEDS: NALOXONE HCL 0.4 MG/1 ML VIAL/CARP IV STA (00:01)
--- NOTE | 2024-09-20 00:36 | Communication Note ---
Date of Service: September 20, 2024 Responded to overhead Code Purple. Brief history noted - admitted 09/19/2024 night due to intentional toxic ingestion (lorazepam and zolpidem). Presents obt unded. Utox + opiates. Received Narcan pre-hospital and in ED with some improvement, was protecting airway, admitted to PCU. Code Purple called due to obtundation, intermittent hypoxia on OxyMask, and concern for airway compromise. On arrival patient is diaphoretic, unresponsive, snoring respirations. Maintaining oxygen saturation 88-95%. Spot BG 124. Based upon history, 0.4mg Narcan administered with mild improvement. 0.2mg Flumazenil administered with sustained improvement, cough intact, mumbling words. SpO2 99%, RR > 20. He is tachycardic and mildly hypertensive. Pupils 2-3mm and reactive. Clear air movement bilaterally and without clinical signs of aspiration. May require re- dose of reversal agents, avoiding large doses at a time to avoid precipitating significant withdrawal. Continue close monitoring on PCU with strict aspiration precautions (confirmed understanding with bedside RN), suction placed at bedside, 1:1 monitoring. Re-dose reversal agents PRN as per direction of primary team. Labs per primary team. Routine VBG. If continues to require oxygen therapy would have low threshold to repeat imaging of the chest to look for aspiration. I remain available for further questions or consultation. Plan discussed at bedside with Dr. Child for coordination of care. Coding Level of Care Code None
[2024-09-20 00:42] LABS: Base Excess VBG -5.1 mEq/L; HCO3 VBG 26 mmol/L; Oxygen Saturation VBG < 60.0 %; PCO2 VBG 83 mmHg (38-50); PO2 VBG 35 mmHg; pH VBG 7.11 (7.36-7.41)
[2024-09-20 00:43] LABS: Hematocrit (blood only) 44.1 % (42.0-52.0); Hemoglobin 14.1 g/dl (14.0-18.0); Immature Granulocytes # (auto) 0.01 K/uL (0.01-0.20); Immature Granulocytes % (auto) 0.2 %; Mean Corpuscular Hemoglobin 30.1 pg (25.0-34.0); Mean Corpuscular Volume 94.0 fL (80.0-100.0); Platelet Count 165 K/uL (130-400); RDW Standard Deviation 47.3 fL (36.4-46.3); Red Blood Count 4.69 M/uL (4.70-6.10); White Blood Count 6.04 K/ul (4.8-10.8)
[2024-09-20 01:02] LABS: Alanine Aminotransferase 29.0 U/L (7-52); Alkaline Phosphatase 88.0 U/L (34-104); Anion Gap 7.0 (3-11); Blood Urea Nitrogen 25.0 mg/dl (6-23); Calcium 8.9 mg/dl (8.6-10.3); Carbon Dioxide 25.0 mmol/L (21-32); Chloride 109.0 mmol/L (98-107); Creatinine Clr Calc Pharmacy 50.7 ml/min; Glucose 115.0 mg/dl (70-99(Fasting)); Potassium 4.7 mmol/L (3.5-5.1); Sodium 141.0 mmol/L (136-145)
[2024-09-20 01:10] LABS: Bilirubin,Total 0.5 mg/dl (0.2-1.0); Total Protein 7.4 gm/dl (6.0-8.3)
[2024-09-20 01:18] LABS: Thyroid Stimulating Hormone 0.635 uIu/ml (0.300-4.500)
--- NOTE | 2024-09-20 03:06 | Communication Note ---
Date of Service: September 20, 2024 See certified phlebotomy technician communication note for summary of code purple events. Following administration of Narcan and flumazenil, patient had RR>20, still lethargic but more arousable, was coughing/demonstrated ability to protect airway. Labs obtained, notable for: VBG with pH 7.11, pCO2 83, lactate 2.1. Patient subsequently placed on BiPAP. Labs repeated 1-2 hours later demonstrated improvement in lab markers: VBG pH 7.27, pCO2 54, lactate 1.2. BiPAP continued. Increase in CK noted (~700->~4100), maintenance fluids continued, expect that this will improve with continued hydration. Serial labs already ordered.
[2024-09-20 03:14] LABS: Base Excess VBG -2.9 mEq/L; HCO3 VBG 25 mmol/L; Oxygen Saturation VBG 73.7 %; PCO2 VBG 54 mmHg (38-50); PO2 VBG 42 mmHg; pH VBG 7.27 (7.36-7.41)
[2024-09-20 03:21] LABS: Hematocrit (blood only) 44.2 % (42.0-52.0); Hemoglobin 14.4 g/dl (14.0-18.0); Mean Corpuscular Hemoglobin 30.2 pg (25.0-34.0); Mean Corpuscular Volume 92.7 fL (80.0-100.0); Platelet Count 150 K/uL (130-400); RDW Standard Deviation 46.6 fL (36.4-46.3); Red Blood Count 4.77 M/uL (4.70-6.10); White Blood Count 5.95 K/ul (4.8-10.8)
[2024-09-20 03:35] LABS: Anion Gap 5.0 (3-11); Blood Urea Nitrogen 27.0 mg/dl (6-23); Calcium 8.6 mg/dl (8.6-10.3); Carbon Dioxide 26.0 mmol/L (21-32); Chloride 110.0 mmol/L (98-107); Creatinine Clr Calc Pharmacy 59.1 ml/min; Glucose 94.0 mg/dl (70-99(Fasting)); Potassium 4.6 mmol/L (3.5-5.1); Sodium 141.0 mmol/L (136-145)
[2024-09-20 03:52] LABS: Creatine Kinase 4116.0 U/L (30-223)
[2024-09-20] MEDS: NALOXONE HCL 0.4 MG/1 ML VIAL/CARP ONE (04:34)
[2024-09-20] MEDS: ACETAMINOPHEN 1,000 MG/100 ML VIAL IV PRN (08:29)
[2024-09-20] MEDS: NICOTINE 21 MG/24 HR TDSY TD SCH (13:46)
--- NOTE | 2024-09-20 22:46 | Hospitalist Progress Note ---
Date of Service September 20, 2024 Assessment & Plan (1) TARA (acute kidney injury): (2) Encephalopathy acute: (3) AC separation: (4) Toxic metabolic encephalopathy: (5) Suicide attempt: (6) Intentional drug overdose: Plan This is a 64-year-old male with a history of Sjogren syndrome, hypertension who presented with unresponsiveness. This is most likely a suicide attempt and intentional drug overdose of benzodiazepine and zolpidem. #Acute toxic metabolic encephalopathy/suicide attempt/intentional drug overdose Most likely secondary to overdose of benzodiazepine and zolpidem Contacted poison control who recommended IV fluids and observation He is breathing on his own, less drowsy. 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 One-to-one sitter in his room - will continue supportive care. [facility] is [facility] to go to [facility] today. #Acute kidney injury Unknown baseline creatinine Will assume that this is acute Hydrate with IV fluids Monitor BMP #Fever He had 1 episode of fever spike of 38.8 No leukocytosis No source found Unlikely to be infection related Will continue to monitor If continues to spike fevers, will get blood cultures and may initiate broad- spectrum antibiotics #Hypertension Will hold antihypertensives and all p.o. medications #Sjogren syndrome Hold Plaquenil as he will not be able to take p.o. due to altered mental status Assumed to be a full code VTE prophylaxis: Lovenox Admission and Anticipated Discharge Date Admission Date: September 19, 2024 Subjective Patient is more awake, and is asking to eat. Patient does not recall what brought him to the hospital Physical Exam Physical Exam: General: Patient is awake but slightly drowsy. Does answer some questions Heart: S1, S2/regular rate and rhythm, no murmur rubs or gallops Lungs: Clear to auscultation bilaterally. Normal effort Abdomen: Soft/nontender/nondistended. No hepatosplenomegaly Extremities: No clubbing/cyanosis. No edema Results & Data Results & Data Vital Signs (Past 12 Hours) Vital Signs Temp Pulse Pulse Resp BP BP Pulse Ox 09/20/24 20:16 09/20/24 20:14 37 C 09/20/24 19:09 38.2 C H 117 H 20 160/82 H 95 09/20/24 15:08 90 09/20/24 15:08 86 L 09/20/24 15:01 0 L 09/20/24 14:46 37.4 C 79 20 123/71 94 09/20/24 14:45 96 09/20/24 14:22 97 09/20/24 13:40 98 09/20/24 13:32 98 09/20/24 13:00 78 09/20/24 12:14 98 09/20/24 12:12 86 121/71 98 09/20/24 11:42 174 H O2 Del Method O2 Flow Rate 09/20/24 20:16 Nasal Cannula 1 09/20/24 20:14 09/20/24 19:09 Nasal Cannula 1 09/20/24 15:08 Nasal Cannula 1 09/20/24 15:08 Nasal Cannula 0.5 09/20/24 15:01 Room Air 86 09/20/24 14:46 Room Air 09/20/24 14:45 Nasal Cannula 1 09/20/24 14:22 Nasal Cannula 2 09/20/24 13:40 Nasal Cannula 2 09/20/24 13:32 Oxymask 2 09/20/24 13:00 09/20/24 12:14 Oxymask 4 09/20/24 12:12 Oxymask 4 09/20/24 11:42 PG Care Time/CCT Total # of Minutes Spent Total Time Spent with Patient: Total time spent is greater than 50% in coordination of care (as documented) at patient's floor/unit and/or counseling patient: Coding Level of Care Code 60533 SUB INP/OBS CARE 3/50MIN Diagnoses TARA (acute kidney injury) N17.9 Encephalopathy acute G93.40 AC separation S43.109A Toxic metabolic encephalopathy G92.8 Suicide attempt T14.91XA Intentional drug overdose T50.902A
--- NOTE | 2024-09-21 01:20 | Communication Note ---
Date of Service: September 21, 2024 Code navin called overnight - patient became agitated and was insistent on leaving. Staff/security were needed to prevent patient from getting out of bed. Zyprexa IM 5mg administered. Patient also connected with daughter on the phone, which helped him calm down. One to one remained in room. Additional 2.5mg IM Zyprexa available PRN for emergent need. Checked in with RN again around 0430, patient sleeping comfortably.
[2024-09-21 05:37] LABS: Base Excess VBG -2.4 mEq/L; HCO3 VBG 25 mmol/L; Oxygen Saturation VBG 70.7 %; PCO2 VBG 50 mmHg (38-50); PO2 VBG 38 mmHg; pH VBG 7.30 (7.36-7.41)
[2024-09-21 05:45] LABS: Hematocrit (blood only) 39.7 % (42.0-52.0); Hemoglobin 12.9 g/dl (14.0-18.0); Mean Corpuscular Hemoglobin 30.1 pg (25.0-34.0); Mean Corpuscular Volume 92.8 fL (80.0-100.0); Platelet Count 115 K/uL (130-400); RDW Standard Deviation 44.7 fL (36.4-46.3); Red Blood Count 4.28 M/uL (4.70-6.10); White Blood Count 5.30 K/ul (4.8-10.8)
--- NOTE | 2024-09-21 06:18 | Electrocardiogram Report ---
Test Reason : Blood Pressure : */* mmHG Vent. Rate : 100 BPM Atrial Rate : 100 BPM P-R Int : 152 ms QRS Dur : 82 ms QT Int : 326 ms P-R-T Axes : -17 -6 21 degrees QTcB Int : 420 ms Poor data quality, interpretation may be adversely affected Normal sinus rhythm Minimal voltage criteria for LVH, may be normal variant ( Sokolow-Mattson ) Possible Inferior infarct , age undetermined Abnormal ECG When compared with ECG of 13-Jun-2009 00:35, Possible Inferior infarct is now Present Confirmed by Jose Armando Delgado ([id number]) on 09/21/2024 6:18:07 AM Referred By: REFERRED SELF Confirmed By: Jose Armando Delgado
--- NOTE | 2024-09-21 06:18 | Electrocardiogram Report ---
Test Reason : Blood Pressure : */* mmHG Vent. Rate : 65 BPM Atrial Rate : 65 BPM P-R Int : 164 ms QRS Dur : 82 ms QT Int : 374 ms P-R-T Axes : 44 28 7 degrees QTcB Int : 388 ms Normal sinus rhythm Possible Left atrial enlargement Borderline ECG When compared with ECG of 13-Jun-2009 00:35, No significant change Confirmed by Jose Armando Delgado ([id number]) on 09/21/2024 6:18:24 AM Referred By: REFERRED SELF Confirmed By: Jose Armando Delgado
--- NOTE | 2024-09-21 06:19 | Electrocardiogram Report ---
Test Reason : Blood Pressure : */* mmHG Vent. Rate : 111 BPM Atrial Rate : 111 BPM P-R Int : 170 ms QRS Dur : 92 ms QT Int : 340 ms P-R-T Axes : * -3 173 degrees QTcB Int : 462 ms Sinus tachycardia Septal infarct , age undetermined Possible Inferior infarct , age undetermined Nonspecific ST and T wave abnormality Abnormal ECG When compared with ECG of 19-Sep-2024 14:43, Vent. rate has increased by 46 bpm Septal infarct is now Present ST now depressed in Lateral leads Confirmed by Jose Armando Delgado ([id number]) on 09/21/2024 6:19:05 AM Referred By: REFERRED SELF Confirmed By: Jose Armando Delgado
[2024-09-21 06:22] LABS: Anion Gap 7.0 (3-11); Blood Urea Nitrogen 21.0 mg/dl (6-23); Calcium 8.6 mg/dl (8.6-10.3); Carbon Dioxide 24.0 mmol/L (21-32); Chloride 110.0 mmol/L (98-107); Creatine Kinase 2386.0 U/L (30-223); Creatinine Clr Calc Pharmacy 87.9 ml/min; Glucose 78.0 mg/dl (70-99(Fasting)); Potassium 4.2 mmol/L (3.5-5.1); Sodium 141.0 mmol/L (136-145)
[2024-09-21] MEDS: REMOVE NICODERM PATCH SCH (08:16)
[2024-09-21] MEDS: ARTIFICIAL TEARS OPB PRN (10:05)
--- NOTE | 2024-09-21 11:08 | Communication Note ---
Date of Service: September 21, 2024 Attempted to interview pt this AM. AO to self place date. In/out consciousness and appears drowsy. Dysarthric speech. Unable to engage in the conversation. Will return at later time.
--- NOTE | 2024-09-21 23:00 | Hospitalist Progress Note ---
Date of Service September 21, 2024 Assessment & Plan (1) TARA (acute kidney injury): (2) Encephalopathy acute: (3) AC separation: (4) Toxic metabolic encephalopathy: (5) Suicide attempt: (6) Intentional drug overdose: Plan This is a 64-year-old male with a history of Sjogren syndrome, hypertension who presented with unresponsiveness. This is most likely a suicide attempt and intentional drug overdose of benzodiazepine and zolpidem. #Acute toxic metabolic encephalopathy/suicide attempt/intentional drug overdose Most likely secondary to overdose of benzodiazepine and zolpidem Contacted poison control who recommended IV fluids and observation He is breathing on his own, awake, trying to feed himself. 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 One-to-one sitter in his room -Not at baseline, but improved. - will continue supportive care. He was scheduled to go to longterm at on 09/20 prior to this admission. #Acute kidney injury Unknown baseline creatinine Will assume that this is acute Hydrate with IV fluids Monitor BMP #Fever He had 1 episode of fever spike of 38.8 No leukocytosis No source found Unlikely to be infection related Will continue to monitor If continues to spike fevers, will get blood cultures and may initiate broad- spectrum antibiotics #Hypertension Will hold antihypertensives and all p.o. medications #Sjogren syndrome Hold Plaquenil as he will not be able to take p.o. due to altered mental status Assumed to be a full code VTE prophylaxis: Lovenox Admission and Anticipated Discharge Date Admission Date: September 19, 2024 Subjective 64 yo male remains confused, but more awake. Physical Exam Physical Exam: General: Patient is awake but confused. Does answer some questions: but not making sense. Heart: S1, S2/regular rate and rhythm, no murmur rubs or gallops Lungs: Clear to auscultation bilaterally. Normal effort Abdomen: Soft/nontender/nondistended. No hepatosplenomegaly Extremities: No clubbing/cyanosis. No edema Results & Data Results & Data Vital Signs (Past 12 Hours) Vital Signs Temp Pulse Pulse Resp BP Pulse Ox O2 Del Method 09/21/24 19:18 38.3 C H 81 18 163/73 H 94 Room Air 09/21/24 15:05 37.2 C 99 H 16 129/85 96 Room Air 09/21/24 13:47 84 PG Care Time/CCT Total # of Minutes Spent Total Time Spent with Patient: Total time spent is greater than 50% in coordination of care (as documented) at patient's floor/unit and/or counseling patient: Coding Level of Care Code 07157 SUB INP/OBS CARE 3/50MIN Diagnoses TARA (acute kidney injury) N17.9 Encephalopathy acute G93.40 AC separation S43.109A Toxic metabolic encephalopathy G92.8 Suicide attempt T14.91XA Intentional drug overdose T50.902A
[2024-09-22 09:36] LABS: Anion Gap 10.0 (3-11); Blood Urea Nitrogen 11.0 mg/dl (6-23); Calcium 9.1 mg/dl (8.6-10.3); Carbon Dioxide 25.0 mmol/L (21-32); Chloride 105.0 mmol/L (98-107); Creatinine Clr Calc Pharmacy 103.6 ml/min; Glucose 102.0 mg/dl (70-99(Fasting)); Potassium 3.5 mmol/L (3.5-5.1); Sodium 140.0 mmol/L (136-145)
[2024-09-22 10:25] LABS: Hematocrit (blood only) 38.5 % (42.0-52.0); Hemoglobin 13.5 g/dl (14.0-18.0); Mean Corpuscular Hemoglobin 30.0 pg (25.0-34.0); Mean Corpuscular Volume 85.6 fL (80.0-100.0); Platelet Count 120 K/uL (130-400); RDW Standard Deviation 38.5 fL (36.4-46.3); Red Blood Count 4.50 M/uL (4.70-6.10); White Blood Count 5.60 K/ul (4.8-10.8)
[2024-09-22 12:08] LABS: Hydrocodone Urine NEGATIVE ng/mL (<50); Hydromor Urine 90 ng/mL (<50); Noroxycodone Urine NEGATIVE ng/mL (<50); Oxymorph Urine NEGATIVE ng/mL (<50)
--- NOTE | 2024-09-22 12:52 | Hospitalist Progress Note ---
Date of Service September 22, 2024 Assessment & Plan (1) TARA (acute kidney injury): (2) Encephalopathy acute: (3) AC separation: (4) Toxic metabolic encephalopathy: (5) Suicide attempt: (6) Intentional drug overdose: Plan This is a 64-year-old male with a history of Sjogren syndrome, hypertension who presented with unresponsiveness. This is most likely a suicide attempt and intentional drug overdose of benzodiazepine and zolpidem. #Acute toxic metabolic encephalopathy/suicide attempt/intentional drug overdose Most likely secondary to overdose of benzodiazepine and zolpidem Contacted poison control who recommended IV fluids and observation He is breathing on his own, awake, trying to feed himself. 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 One-to-one sitter in his room -Not at baseline, but improved. - will continue supportive care. He was [facility] prior to this admission. #Acute kidney injury Unknown baseline creatinine Will assume that this is acute Hydrate with IV fluids resolved, creatinine 0.73 Rhabdomyolysis - CK downtrending, 4116 -> 2386 - Continue to monitor, no ongoing muscle pain #Fever No leukocytosis No source found Unlikely to be infection related Will continue to monitor - afebrile since 6pm 09/21, 2x Bcx and tick-borne panel/smear ordered #Hypertension Will hold antihypertensives and all p.o. medications #Sjogren syndrome Continue home Plaquenil Assumed to be a full code VTE prophylaxis: Lovenox Admission and Anticipated Discharge Date Admission Date: September 19, 2024 Supervising Physician Co-Signing Physician Notes I personally examined the patient and verified all powers points of history and exam, discussed case, and agree with decision making with Dr Coleman feeling better overall - still seems a little easily confused, but conversive. only complaints center on chronic hip pain vitals noted nad heent nc at mmm breathing unlabored no accessory mucsles good effort sl diminished basilar no r/r/w skin no rashes no pallor or icterus overdose/ams/delirium-metabolic encephalopathy - related to ambien/ativan OD - appears to be improving fevers - no appearance of bacterial infeciton at this time. blood cultures simply for completeness since bacteremia can be subtle, tick panel given it is messi in [place]. with OD/mild O2 requirement/diminished breath sounds - atelectasis would be most likely culprit - if so, i'd anticipate this improving as he becomes more awake/alert DVT proph -heparin SQ otherwise as above Subjective Shiva Green was seen this AM resting comfortably. Patient is alert and oriented and less confused than previously reported. Slight delerium still present and patient is still pulling at cardiac leads and pulse oximetry. Patient denies acute complaints other than dry mouth. Patient is afebrile and hemodynamically stable. Physical Exam Physical Exam: General: patient resting comfortably, NAD, non-toxic in appearance, answers questions appropriately. Skin: warm, dry, intact HEENT: NC/AT, anicteric sclera, conjunctiva without injection, moist mucus m embranes. Heart: +S1/S2, regular, no m/r/g Lungs: equal air entry bilaterally, no rales/rhonchi/wheezes Abd: +BS, soft, NT/ND Ext: warm, no clubbing/cyanosis or edema Neuro: nonfocal, speech intact, no facial droop, moving all extremities. Results & Data Results & Data Vital Signs (Past 12 Hours) Vital Signs Temp Pulse Pulse Resp BP Pulse Ox O2 Del Method 09/22/24 09:12 108 H 09/22/24 07:21 37.4 C 79 18 169/81 H 99 Nasal Cannula O2 Flow Rate 09/22/24 09:12 09/22/24 07:21 1 Resident Activity Tracking Resident Involvement: Resident Care Provided Care Provided: Adult Hospital Medicine
--- NOTE | 2024-09-22 12:55 | Psychiatric Consultation ---
Date of Consultation September 22, 2024 Impression / Recommendations Impression 64 y/o h/o Sjogren syndrome, hypertension who presented with intentional ingestion of Zolpidem and Lorazepam as a possible suicide attempt. Psychiatry consulted for evaluation and safety assessment. Patient presented with a possible suicide attempt via intentional ingestion of Ambien and Ativan in the context of impending imprisonment and concern for loss of caregiving to his and mother. Per the patient this was an impulsive event with no prior planning. He denies past psychiatric diagnosis or treatment. He denies current suicidal ideation or ideation for the months prior. No past suicide attempts reported. No indication patient is currently in a major mood or psychotic episode. The interview was limited due to patient's current dysarthria and will follow up for further details. No current indication for initiating psychotropic medication or inpatient psychiatry admission at this time. Once medically cleared, would inform police in case he will have to be discharged to their custody. Overall, I spent a total of 80 minutes with this case including review of chart records, nursing report, review of lab work, direct evaluation of the patient at bedside, counseling the patient, discussion of the patient with the hospitalist provider, discussion with the psychiatric liaison during clinical rounds, and documentation in the electronic health record. (1) Intentional drug overdose: (2) Suicide attempt: (3) Legal problem: Plan 09/22/24: Continue 1:1 sitter Suicide precautions Psych History Identifying Data 64 y/o h/o Sjogren syndrome, hypertension who presented with intentional ingestion of Zolpidem and Lorazepam as a possible suicide attempt. Psychiatry consulted for evaluation and safety assessment. Chief Complaint Intentional ingestion History of Present Illness Patient is oriented to self place year month. Presents dysarthric speech and was difficult to comprehend. He reports in 2021 he was pulled over by the police for having guns and stored them in his parents garage. This past year he moved into his parents home. He had bought smokeless gunpowder online and feels this triggered the police. He was again pulled over right before Abel and feels he was targeted at the time and that it was a "set up". They searched his home which was his parents home at the time and they found his guns. He was taken into custody and went to the court house. Sentenced to [facility] in [facility]. He was allowed to be free prior to the start of a sentence so that he can establish caregiving for his mother and his . He reports being at home pr ior to hospitalization and felt overwhelmed due to concerns about his loved ones. Says that he took his prescribed Ambien and his 's Ativan to end the bad feelings. He denies current suicidal ideation and denies a history of suicidal ideation or suicide attempts. Says he was supposed to go into [facility] on [facility] 20. He denies a history of mental health conditions or treatment. Allergies Allergy/AdvReac Type Severity Reaction Status Date / Time linezolid Allergy Unknown POSSIBLE Verified 08/01/21 14:51 ALLERGY Penicillins Allergy Unknown Verified 08/01/21 14:51 vancomycin AdvReac Intermediate POSSIBLE Verified 08/01/21 14:51 RED MAN SYNDROME Home Medications Medication Instructions Recorded Confirmed Type hydroxychloroquine 200 mg tablet 300 mg PO HS 09/19/24 09/19/24 History irbesartan 300 mg tablet 300 mg PO DAILY 09/19/24 09/19/24 History lorazepam 1 mg tablet 1 mg PO BID PRN Anxiety 09/19/24 09/19/24 History zolpidem 10 mg tablet (Ambien) 10 mg PO HS PRN Sleep 09/19/24 09/19/24 History Patient History Medical History History of hypertension History of lupus Surgical History History of total left hip replacement History of hernia repair Social History Smoking Status: Current every day smoker Tobacco Type: Cigarettes and E-cigarettes / Vaping Age Started Using Tobacco: 16; packs per day: 0.5; Hx Alcohol Use: No Hx Substance Use: Yes Last Used Substance: Unknown Preferred Language: [place] Communication Ability: Impaired Mail Clerk Required: No Beliefs That Will Affect Care: None Current Living Situation: Spouse Feels Safe at Home: Yes Assistive Devices: None Physical Exam Mental Examination: Appearance: Disheveled Eye Contact: Sporadic Contact Motor Behavior: Restless Speech: Slurred Mood: Anxious and Dyphoric Affect: Congruent and Constricted Thought Process: Intact and Circumstantial Thought Content: Racing Hallucinations: None Insight: Poor (to limited) Judgement: Poor Vital Signs (Past 24 Hours): Last Vital Signs Temp 37.4 C 09/22/24 07:21 Pulse 108 H 09/22/24 09:12 Resp 18 09/22/24 07:21 BP 169/81 H 09/22/24 07:21 Pulse Ox 99 09/22/24 07:21 O2 Del Method Nasal Cannula 09/22/24 07:21 O2 Flow Rate 1 09/22/24 07:21 FiO2 28 09/20/24 23:23 Results & Data (PSY) Medications Administered Artificial Tears (Artificial Tears) 1 drops OPB QID PRN PRN Reason: Dryness Stop: 10/21/24 09:58 Last Admin: 09/21/24 10:05 Dose: 1 drops Documented By: MAURA Heparin Sodium (Porcine) (Heparin Sod 5,000 Unit/0.5 Ml Vial) 5,000 units SQ Q12 [facility] Stop: 10/19/24 21:41 Last Admin: 09/22/24 09:04 Dose: 5,000 units Documented By: Admin: 09/21/24 20:21 Dose: 5,000 units Documented By: Admin: 09/21/24 08:17 Dose: 5,000 units Documented By: Admin: 09/20/24 20:10 Dose: 5,000 units Documented By: Admin: 09/20/24 10:33 Dose: 5,000 units Documented By: MAURA(2) Admin: 09/19/24 21:49 Dose: 5,000 units Documented By: EVELIN Sodium Chloride (Nss) 1,000 mls @ 150 mls/hr IV .Q6H40M [facility] Stop: 09/22/24 21:41 Last Infusion: 09/22/24 05:37 Dose: Infused Documented By: Admin: 09/21/24 20:21 Dose: 150 mls/hr Documented By: Infusion: 09/21/24 20:21 Dose: Infused Documented By: Admin: 09/21/24 14:57 Dose: 150 mls/hr Documented By: Infusion: 09/21/24 14:57 Dose: Infused Documented By: Admin: 09/21/24 08:16 Dose: 150 mls/hr Documented By: Infusion: 09/21/24 08:16 Dose: Infused Documented By: Admin: 09/21/24 02:14 Dose: 150 mls/hr Documented By: Infusion: 09/21/24 01:47 Dose: Infused Documented By: Admin: 09/20/24 19:03 Dose: 150 mls/hr Documented By: MAURA(2) Infusion: 09/20/24 19:03 Dose: Infused Documented By: MAURA(2) Admin: 09/20/24 12:16 Dose: 150 mls/hr Documented By: MAURA(2) Infusion: 09/20/24 12:00 Dose: Infused Documented By: MAURA(2) Admin: 09/20/24 04:23 Dose: 150 mls/hr Documented By: Infusion: 09/20/24 04:23 Dose: Infused Documented By: Admin: 09/19/24 21:49 Dose: 150 mls/hr Documented By: EVELIN Acetaminophen (Ofirmev) 1,000 mg in 100 mls @ 400 mls/hr IV Q8H PRN PRN Reason: Fever or headache Stop: 09/23/24 07:57 Last Infusion: 09/20/24 23:14 Dose: Infused Documented By: Admin: 09/20/24 22:55 Dose: 400 mls/hr Documented By: Infusion: 09/20/24 08:45 Dose: Infused Documented By: MAURA(2) Admin: 09/20/24 08:29 Dose: 400 mls/hr Documented By: [facility] Miscellaneous (Remove Nicoderm Patch) 1 each N/A DAILY@0859 [facility] Stop: 10/21/24 08:58 Last Admin: 09/22/24 09:04 Dose: 1 each Documented By: Admin: 09/21/24 08:16 Dose: 1 each Documented By: MAUAR Nicotine (Nicotine 21 Mg/24 Hr Tdsy) 1 patch TD QAM [facility] Stop: 10/20/24 12:59 Last Admin: 09/22/24 09:04 Dose: 1 patch Documented By: Admin: 09/21/24 08:16 Dose: 1 patch Documented By: Admin: 09/20/24 13:46 Dose: 1 patch Documented By: MAURA(2) Olanzapine (Olanzapine 10 Mg/2.1 Ml Sdv) 2.5 mg IM ONCE PRN PRN Reason: Agitation Stop: 10/21/24 00:23 Last Admin: 09/21/24 21:20 Dose: 2.5 mg Documented By: AKDalia [place] [address] IN/OBS CONSULT LVL 5,80M Patient Type New History Comprehensive Exam Comprehensive Medical Decision Making High Complexity Diagnoses Intentional drug overdose T50.902A Suicide attempt T14.91XA Legal problem Z65.3
--- NOTE | 2024-09-22 18:17 | Billing Data ---
Date of Service September 22, 2024 Coding Level of Care Code 14371 SUB INP/OBS CARE MIN
[2024-09-22] MEDS: LORazepam 1 MG TAB PO STA (23:29)
[2024-09-23] MEDS: POTASSIUM CHLORIDE 20 MEQ/15 ML UDC PO STA (03:15)
[2024-09-23] MEDS: POTASSIUM CHLORIDE CRTAB 20 MEQ TABCR PO STA (03:22)
[2024-09-23 06:42] LABS: Hematocrit (blood only) 41.5 % (42.0-52.0); Hemoglobin 14.5 g/dl (14.0-18.0); Mean Corpuscular Hemoglobin 30.5 pg (25.0-34.0); Mean Corpuscular Volume 87.2 fL (80.0-100.0); Platelet Count 135 K/uL (130-400); RDW Standard Deviation 39.2 fL (36.4-46.3); Red Blood Count 4.76 M/uL (4.70-6.10); White Blood Count 5.09 K/ul (4.8-10.8)
[2024-09-23 06:52] LABS: Anion Gap 9.0 (3-11); Blood Urea Nitrogen 17.0 mg/dl (6-23); Calcium 9.2 mg/dl (8.6-10.3); Carbon Dioxide 27.0 mmol/L (21-32); Chloride 104.0 mmol/L (98-107); Creatinine Clr Calc Pharmacy 89.0 ml/min; Glucose 104.0 mg/dl (70-99(Fasting)); Potassium 3.9 mmol/L (3.5-5.1); Sodium 140.0 mmol/L (136-145)
[2024-09-23 07:08] LABS: Immature Granulocytes # (auto) 0.02 K/uL (0.01-0.20); Immature Granulocytes % (auto) 0.4 %
--- NOTE | 2024-09-23 08:17 | Hospitalist Progress Note ---
Date of Service September 23, 2024 Assessment & Plan (1) TARA (acute kidney injury): (2) Encephalopathy acute: (3) AC separation: (4) Toxic metabolic encephalopathy: (5) Suicide attempt: (6) Intentional drug overdose: Plan This is a 64-year-old male with a history of Sjogren syndrome, hypertension who presented with unresponsiveness. This is most likely a suicide attempt and intentional drug overdose of benzodiazepine and zolpidem. #Acute toxic metabolic encephalopathy/suicide attempt/intentional drug overdose Most likely secondary to overdose of benzodiazepine and zolpidem Contacted poison control who recommended IV fluids and observation He is breathing on his own, awake, trying to feed himself. These medications can cause PREPLEATER and respiratory depression. One-to-one sitter in his room - Not at baseline, but improved. - will continue supportive care. He was scheduled to go to assisted at on 09/20 prior to this admission. - 2 runs of asymptomatic SVT overnight, continue to monitor #Acute kidney injury Unknown baseline creatinine Will assume that this is acute Hydrate with IV fluids resolved, creatinine 0.85 Rhabdomyolysis - CK downtrending, 4116 -> 2386 - Continue to monitor, no ongoing muscle pain #Fever No leukocytosis No source found Unlikely to be infection related Will continue to monitor - afebrile since 6pm 09/21, 2x Bcx and tick-borne panel pending, smear negative for Anaplasma and Babesia #Hypertension Will hold antihypertensives and all p.o. medications #Sjogren syndrome Continue home Plaquenil Assumed to be a full code VTE prophylaxis: Lovenox Admission and Anticipated Discharge Date Admission Date: September 19, 2024 Subjective Patient was lying in bed comfortably in no acute distress. He answered all questions appropriately. Nursing staff reports no agitation overnight. Patient reports wearing CPAP for a short period of time last night. Denies CALDERON, CP, SOB, dizziness, fever, muscle weakness, muscle pain. Review of Systems Review of Systems: All systems reviewed & are unremarkable except as noted in Subjective Physical Exam Physical Exam: General: patient resting comfortably, NAD, non-toxic in appearance, answers questions appropriately. Skin: warm, dry, intact HEENT: NC/AT, anicteric sclera, conjunctiva without injection, moist mucus membranes. Heart: +S1/S2, regular, no m/r/g Lungs: equal air entry bilaterally, no rales/rhonchi/wheezes Abd: +BS, soft, NT/ND Ext: warm, no clubbing/cyanosis or edema Neuro: nonfocal, speech intact, no facial droop, moving all extremities, A&O x3 Results & Data Results & Data Vital Signs (Past 12 Hours) Vital Signs Temp Pulse Pulse Resp BP Pulse Ox O2 Del Method 09/23/24 07:26 91 H 09/23/24 07:05 37.1 C 93 H 20 127/82 95 Room Air 09/23/24 03:23 71 26 H 97 09/23/24 02:56 37.2 C 106 H 18 129/79 93 Room Air 09/23/24 00:00 91 H
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
--- NOTE | 2024-09-23 13:08 | Billing Data ---
Date of Service September 23, 2024 Coding Level of Care Code 67614 IN/OBS DISCH 30 MIN/LESS
== END 2024-09-23 15:12 | DRG 917 ==
LOC: SUATTDRO → ED 14:19 → 4W 17:46 → SUATTDRO 17:46 → 4W 19:52